=== PATIENT | female | born 1995 | race Caucasian/White ===

== ENCOUNTER 2020-12-13 07:39 | Emergency (ER) | payer MEDICAID ==
--- NOTE | 2020-12-13 07:55 | ED Physician Documentation ---
PD HPI ABD PAIN - Stated complaint Stated Complaint: ABD PX - History obtained from History obtained from: Patient - History of Present Illness Timing - onset: How many days ago (has had some pain left lower abd for couple of days intermittently, with abrupt significant worsening this morning about 3 hours ago.) Timing - duration: Hours (severe for 3 hours.) Timing - details: Abrupt onset (mild for couple of days intermittently, then abrupt this morning.), Still present Quality: Aching, Sharp, Pain Location: LLQ Radiation: Lower back Improved by: Laying still Worsened by: Moving, Palpation. No: Breathing Associated symptoms: Nausea. No: Fever, Vomiting, Diarrhea, Dysuria, Loss of appetite, Vaginal bleeding, Vaginal dc Similar symptoms before: Has not had sx before Recently seen: Not recently seen Review of Systems Constitutional: denies: Fever, Chills Nose: denies: Rhinorrhea / runny nose, Congestion Throat: denies: Sore throat Respiratory: denies: Cough GI: reports: Abdominal Pain, Nausea. denies: Vomiting, Constipation, Diarrhea : denies: Dysuria, Discharge Skin: denies: Rash, Lesions Neurologic: denies: Near syncope PD PAST MEDICAL HISTORY - Past Medical History Past Medical History: No - Present Medications Home Medications: Ambulatory Orders Medication Instructions Recorded Confirmed HYDROcod/ACETAM 5/325 [[place] 5/325] 1 ea PO Q6H PRN #20 tablet 12/13/20 Ibuprofen [Motrin] 600 mg PO TID PRN #25 tab 12/13/20 Ondansetron Odt [Zofran] 4 mg TL Q6H PRN #15 tablet 12/13/20 - Allergies Allergies/Adverse Reactions: Allergies Allergy/AdvReac Type Severity Reaction Status Date / Time No Known Drug Allergies Allergy Verified 12/13/20 08:51 PD ED PE NORMAL - Vitals Vital signs reviewed: Yes - General General: Alert and oriented X 3, Well developed/nourished, Other (appears very uncomfortable due to abd pain) - Neck Neck: Supple, no meningeal sign, No adenopathy - Cardiac Cardiac: RRR, No murmur - Respiratory Respiratory: Clear bilaterally - Abdomen Abdomen: Soft, Non distended, No organomegaly, Other (tender with guarding locally LLQ without percussion nor rebound tenderness. ) - Female Female : Deferred - Rectal Rectal: Deferred - Back Back: No CVA TTP - Derm Derm: Normal color, Warm and dry - Extremities Extremities: Normal ROM s pain, No edema - Neuro Neuro: Alert and oriented X 3, No motor deficit, Normal speech Results - Vitals Vitals: Vital Signs - 24 hr 12/13/20 12/13/20 12/13/20 07:58 08:53 10:07 Temperature 36.8 C 36.9 C Heart Rate 108 H 76 88 Respiratory 18 16 18 Rate Blood Pressure 144/111 H 136/95 H 133/82 H O2 Saturation 99 96 100 12/13/20 10:59 Temperature Heart Rate 76 Respiratory 19 Rate Blood Pressure 135/80 H O2 Saturation 99 Oxygen O2 Source Room air - Labs Labs: Laboratory Tests 12/13/20 12/13/20 12/13/20 07:55 08:40 08:40 WBC 11.4 H RBC 4.55 Hgb 13.9 Hct 41.3 MCV 90.8 MCH 30.5 MCHC 33.7 RDW 12.1 Plt Count 302 MPV 10.1 Neut # (Auto) 8.6 H Lymph # (Auto) 2.2 Bent # (Auto) 0.5 Eos # (Auto) 0.1 Baso # (Auto) 0.1 Absolute Nucleated RBC 0.00 Nucleated RBC % 0.0 Sodium 136 Potassium 3.8 Chloride 104 Carbon Dioxide 22 Anion Gap 10.0 BUN 13 Creatinine 0.8 Estimated GFR (MDRD) 87 L Glucose 109 H Calcium 9.6 Total Bilirubin 0.4 AST 19 ALT 22 Alkaline Phosphatase 69 Total Protein 8.0 Albumin 4.7 Globulin 3.3 Albumin/Globulin Ratio 1.4 Lipase 32 Urine Color YELLOW Urine Clarity CLEAR Urine pH 6.0 Ur Specific [place] >=1.030 H Urine Protein NEGATIVE Urine Glucose (UA) NEGATIVE Urine Ketones NEGATIVE Urine Occult Blood SMALL H Urine Nitrite NEGATIVE Urine Bilirubin NEGATIVE Urine Urobilinogen 0.2 (NORMAL) Ur Leukocyte Esterase NEGATIVE Urine RBC 0-5 Urine WBC 0-3 Ur Squamous Epith Cells MOD Squamous H Urine Bacteria None Seen Ur Microscopic Review INDICATED Urine Culture Comments NOT INDICATED Urine HCG, Qual NEGATIVE - Rads (name of study) pelvic U/S Radiology: Prelim report reviewed (left small ovarian cyst with mild surrounding free fluid c/w rupturing cyst.), See rad report PD MEDICAL DECISION MAKING - ED course Complexity details: re-evaluated patient (improved with pain meds. ), considered differential, d/w patient Departure - Departure Disposition: 01 Home, Self Care Clinical Impression: Ruptured ovarian cyst, Left lower quadrant abdominal pain Condition: Stable Record reviewed to determine appropriate education?: Yes Instructions: Abdominal Pain, ED Cyst Ovarian Prescriptions: Ibuprofen [Motrin] 600 mg PO TID PRN #25 tab PRN Reason: Pain HYDROcod/ACETAM 5/325 [[place] 5/325] 1 ea PO Q6H PRN #20 tablet PRN Reason: Pain Ondansetron Odt [Zofran] 4 mg TL Q6H PRN #15 tablet PRN Reason: Nausea / Vomiting Comments: Your urine test and blood tests are looking good. Your ultrasound shows a cyst on the left ovary with some free fluid around it denoting a rupturing cyst. This would account for the pain that you are having and the abruptness of it worsening. This would be treated with anti-inflammatories as well as added pain medicine as needed. Stay well-hydrated. Use the anti-inflammatories regularly for a week. Add nausea and pain medicine as needed. I would anticipate improvement over the next 3 to 5 days and resolution within a week. Follow-up with primary care or gynecology if persistent symptoms. Discharge Date/Time: 12/13/20 11:13
[2020-12-13] MEDS ORDERED: SODIUM CHLORIDE 0.9% 1,000 ML IV STA (08:17)
[2020-12-13] MEDS ORDERED: ONDANSETRON 4 MG/2 ML VIAL IVP STA (08:17)
[2020-12-13] MEDS ORDERED: MORPHINE 10 MG/ML VIAL IVP STA (08:23)
[2020-12-13] MEDS ORDERED: KETOROLAC 15 MG/ML VIAL IVP STA (08:23)
[2020-12-13 08:39] LABS: BILIRUBIN,URINE NEGATIVE (NEGATIVE); GLUCOSE, URINE (UA) NEGATIVE (NEGATIVE); KETONES,URINE (UA) NEGATIVE (NEGATIVE); LEUKOCYTE ESTERASE, URINE NEGATIVE (NEGATIVE); NITRITE,URINE NEGATIVE (NEGATIVE); OCCULT BLOOD,URINE SMALL (NEGATIVE); PROTEIN,URINE NEGATIVE (NEGATIVE); UROBILINOGEN,URINE 0.2 (NORMAL) E.U./dL (NORMAL)
[2020-12-13 08:41] LABS: CLARITY,URINE CLEAR (CLEAR); HCG UR QUAL NEGATIVE
[2020-12-13 08:44] LABS: BACTERIA,URINE None Seen /HPF (None Seen); RBC,URINE 0-5 /HPF (0-5); SQUAMOUS EPITHELIAL CELL,UR MOD Squamous (<= Few)
[2020-12-13 08:56] LABS: BASOPHILS # (AUTO) 0.1 10^3/uL (0.0-0.1); BASOPHILS % (AUTO) 0.4 %; EOSINOPHILS # (AUTO) 0.1 10^3/uL (0.0-0.7); EOSINOPHILS % (AUTO) 0.4 %; HGB - HEMOGLOBIN 13.9 g/dL (12.0-16.0); LYMPHOCYTES # (AUTO) 2.2 10^3/uL (1.5-3.5); MEAN CORPUSCULAR HEMOGLOBIN 30.5 pg (27.0-31.0); MEAN CORPUSCULAR HGB CONC 33.7 g/dL (32.0-36.0); MEAN CORPUSCULAR VOLUME 90.8 fL (81.0-99.0); MEAN PLATELET VOLUME 10.1 fL (7.9-10.8); MONOCYTES # (AUTO) 0.5 10^3/uL (0.0-1.0); MONOCYTES % (AUTO) 4.7 %; NEUTROPHILS # (AUTO) 8.6 10^3/uL (1.5-6.6); NEUTROPHILS % (AUTO) 75.2 %; PLT - PLATELET COUNT 302 10^3/uL (130-450); RED BLOOD COUNT 4.55 10^6/uL (4.20-5.40); RED CELL DISTRIBUTION WIDTH 12.1 % (12.0-15.0); WHITE BLOOD COUNT 11.4 x10^3/uL (4.8-10.8)
[2020-12-13 09:07] LABS: ALBUMIN 4.7 g/dL (3.2-5.5); ALBUMIN/GLOBULIN RATIO 1.4 (1.0-2.2); BILIRUBIN,TOTAL 0.4 mg/dL (0.2-1.0); CALCIUM 9.6 mg/dL (8.5-10.3); CREATININE 0.8 mg/dL (0.4-1.0)
--- NOTE | 2020-12-13 10:23 | Ultrasound Report ---
PROCEDURE: Pelvic w/Transvag+Doppler Ltd INDICATIONS: pelvic pain TECHNIQUE: Real-time scanning was performed of the pelvic organs, with image documentation. Additional endovagi nal scanning was necessary due to incomplete visualization of the adnexal and endometrial structures by transabdominal scanning. COMPARISON: None. FINDINGS: No pathologic free abdominal or pelvic fluid. Uterus: Uterus is anteverted and normal in size at 7.9 x 4.9 x 3.5 cm. No fibroids seen. The endome trium measures 9 mm in combined thickness. Ovaries: Within normal limits. Blood flow seen in both ovaries. Greater than 12 ovarian follicles bi laterally. Right ovary measures 2.6 x 2 x 1.9 cm, volume of 5 cc. Left ovary measures 3.1 x 2.8 x 2.7 cm, volume of 12 cc. Left ovarian simple cyst or dominant follicle measuring 2.1 x 2.1 x 1.5 cm. Trace adjacent free fluid . IMPRESSION: 1. Simple left ovarian cyst or dominant follicle measuring 2.1 cm. Trace adjacent free fluid. This co uld be a source of pelvic pain or could be normal. 2. Greater than 12 ovarian follicles bilaterally. This finding could be seen in PCOS. 3. Uterus and endometrium are normal. Reviewed by: Keegan Shetty MD on 12/13/2020 10:21 AM PST Approved by: Keegan Shetty MD on 12/13/2020 10:21 AM PST Station ID: [id number]
[2020-12-13 11:00] VITALS: BP 135/80
== END 2020-12-13 11:13 | disposition home or self-care (01) ==
LOC: ED 07:39
DX: N83.202 Unspecified ovarian cyst, left side (principal)
CPT/HCPCS: 80053; 81001; 81003; 81025; 83690; 85025; 87086; 93976; 96361; 96374; 96375; 99284